=== PATIENT | female | born 1975 | race Caucasian/White ===

== ENCOUNTER 2016-08-12 21:34 | Emergency (ER) | payer OTHER ==
[~2016-08-12] VITALS: Ht 162.6 cm; Wt 55.3 kg
[~2016-08-12 21:34] MED LIST: MEDROL4 M2 PO; TRIAMCINOLONE A15 G2 TOP
[2016-08-12 21:36] VITALS: BP 124/77
--- NOTE | 2016-08-12 21:43 | ED ANIMAL BITE/WOUND CHECK ---
History of Present Illness General Chief Complaint: Animal/Insect Bite Stated Complaint: RABIES SERIES, CAME IN CONTACT WITH RABID CAT Source: patient, family, old records Exam Limitations: no limitations Vital Signs & Intake/Output Vital Signs & Intake/Output Vital Signs Date Time Temp Pulse Resp B/P B/P Pulse O2 O2 Flow FiO2 Mean Ox Delivery Rate 08/126 98.4 98 18 124/77 97 Room Air Allergies Coded Allergies: NO KNOWN ALLERGIES (10/03/12) Reconcile Medications Methylprednisolone. (Medrol) 4 MG TAB.DS.PK 1 DP PO AD RASH 6 on day 1 then reduce by one tablet daily until gone Triamcinolone Acetonide 15 GM CREAM..G. 1 RANDI TOP BID RASH apply to affected area(s) Triage Note: PT TO TRIAGE S/P +RABIES CAT EXPOSURE FOR A VACCINATION. VSS. NO COMPLAINTS. Triage Nurses Notes Reviewed? yes Onset: Abrupt Duration: day(s): (10), better Timing: remote history Injury Environment: work Is Injury an Animal Bite? 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 She is never received the rabies vaccine before. She states the hand which was scratch has been fine she denies any pain redness warmth streaking up the skin fever chills or any other complaints. Her last tetanus is unknown no modifying factors or associated symptoms otherwise. Past History Travel History Traveled to [place] past 21 day No Medical History Any Pertinent Medical History? see below for history Cardiovascular: hypertension, hyperlipidemia Surgical History Surgical History: non-contributory Psychosocial History What is your primary language Greenlandic Tobacco Use: Never used Family History Hx Contributory? No Review of Systems Review of Systems Constitutional: Reports: see HPI. All Other Systems: Reviewed and Negative Comments Review of systems: See HPI, All other systems negative. Constitutional, no chills no fever, no malaise HEENT: no sore throat no congestion, Cardiovascular: No chest pain , no palpitation Skin: no rashes, no change in skin Respiratory: No dyspnea no cough no sputum GI: No nausea no vomiting, no diarrhea Muscle skeletal: No joint pain, no joint swelling, no back pain, no neck pain, Neurologic: no headache Psych: No stress Heme/endocrine: No bruising Immunology: No lymphadenopathy Physical Exam Physical Exam General Appearance: well developed/nourished, no apparent distress, alert, awake Comments: Well-developed well-nourished patient in no apparent distress. HEENT: Atraumatic, extraocular motion intact Neck: Supple, FROM Back: FROM Cardiovascular: Regular rate and rhythms no murmurs Respiratory: No respiratory distress. Patient speaking in full complete sentences. Breath sounds clear to auscultation bilaterally: NO W/R/R Extremities: Superficial abrasion noted to the right dorsal hand no surrounding erythema and scabbed over no streaking up the skin no induration or fluctuance full range of motion Neuro: awake, alert, and oriented to person, place and time. There were no obvious focal neurologic abnormalities. Skin: Warm & dry;No appreciable rash on exposed skin Psych: Mood affect normal, normal memory normal judgment. Progress Differential Diagnosis: cellulitis, tenosysnovitis, cat scratch disease, rabies Plan of Care: Current Medications Sig/Lucas Start time Last Medication Dose Stop Time Status Admin Rabies Immune 1,100 UNITS ONCE ONE 08/12 2199 AC Globulin 08/12 2200 (Rabies Immune Globlulin Inj) Rabies Vaccine 1 SYR ONCE ONE 08/12 2199 AC (Rabies (Vaccine) 08/12 2200 Inj (1ML)) Tetanus/Diphtheria 0.5 ML ONCE ONE 08/12 2199 AC Toxoids Adsorbed 08/12 2200 (Decavac) I discussed with the patient at length scheduled for rabies prophylaxis. I had an extensive conversation regarding need for close follow up with their primary care physician this week as well as return precautions. I answered all of their questions, they feel comfortable with the plan and follow-up care. (ARIANE CAMPBELL) Departure Departure Time of Disposition: 2148 Disposition: HOME OR SELF CARE Condition: Stable Clinical Impression Primary Impression: Rabies, need for prophylactic vaccination against Referrals: NITIN HUMPHREYS,CADEN Ziegler (PCP/Family) Additional Instructions: As discussed return on August 15, August 19 and August 26 for your final rabies vaccinations. Return anytime sooner with any concerns or signs of infection Tylenol Motrin for pain if needed Departure Forms: Customer Survey General Discharge Information
== END 2016-08-12 22:39 ==
LOC: ERH 21:34
DX: Z20.3 Contact with and (suspected) exposure to rabies (principal)
CPT/HCPCS: 90376; 90471; 90714

== ENCOUNTER 2016-08-15 12:28 | Emergency (ER) | payer OTHER ==
--- NOTE | 2016-08-15 12:41 | ED GENERAL ADULT ---
History of Present Illness General Chief Complaint: General Adult Stated Complaint: VACCINE Source: patient, family, old records Exam Limitations: no limitations Vital Signs & Intake/Output Vital Signs & Intake/Output Vital Signs Date Time Temp Pulse Resp B/P B/P Pulse O2 O2 Flow FiO2 Mean Ox Delivery Rate 08/15 1244 97.2 95 18 125/77 98 Room Air Room Air Allergies Coded Allergies: NO KNOWN ALLERGIES (10/03/12) Reconcile Medications Methylprednisolone. (Medrol) 4 MG TAB.DS.PK 1 DP PO AD RASH 6 on day 1 then reduce by one tablet daily until gone Triamcinolone Acetonide 15 GM CREAM..G. 1 RANDI TOP BID RASH apply to affected area(s) Triage Nurses Notes Reviewed? yes Onset: Abrupt Duration: week(s): (1) Timing: recent history Injury Environment: home Severity: mild HPI: 41 year old female presents for 2nd rabies vaccine. She was exposed to a rescued cat at a jail that ended up dying and was tested positive for rabies. Patient reported muscle aches after administration of immunoglobulin which is now resolved but patient is anxious about vaccine. No chest pain, sob. No difficulty eating or swallowing. Past History Medical History Any Pertinent Medical History? see below for history Cardiovascular: hypertension, hyperlipidemia Tetanus Vaccine: 08/12/16 Surgical History Surgical History: non-contributory Psychosocial History What is your primary language Angolan Family History Hx Contributory? No Review of Systems Review of Systems Constitutional: Denies: chills, fever. EENTM: Reports: no symptoms. Respiratory: Denies: short of breath. Cardiovascular: Denies: chest pain. GI: Reports: no symptoms. Genitourinary: Reports: no symptoms. Musculoskeletal: Reports: muscle pain. Skin: Reports: no symptoms. Neurological/Psychological: Reports: anxiety. Hematologic/Endocrine: Denies: bruising, bleeding. Immunologic/Allergic: Denies: splenectomy. All Other Systems: Reviewed and Negative Physical Exam Physical Exam General Appearance: alert, awake, anxious, mild distress, thin Head: atraumatic Ears, Nose, Throat: normal pharynx, hearing grossly normal Respiratory: normal breath sounds, chest non-tender Extremities: normal range of motion, no edema Neurologic/Psych: no motor/sensory deficits, awake, alert, oriented x 3 Skin: intact, normal color, warm/dry Core Measures ACS in differential dx? No CVA/TIA Diagnosis: No Severe Sepsis Present: No Septic Shock Present: No Progress Differential Diagnoses I considered the following diagnoses in my evaluation of the patient: [RABIES PROPHYLAXIS] Plan of Care: RABIES VACCINE ADMINISTERED Initial ED EKG: none Departure Departure Time of Disposition: 1318 Disposition: HOME OR SELF CARE Condition: Stable Clinical Impression Primary Impression: Encounter for repeat administration of rabies vaccination Referrals: UNKNOWN Additional Instructions: FOLLOW UP WITH THE REMAINDER OF YOUR VACCINATIONS Departure Forms: Customer Survey General Discharge Information Critical Care Note Critical Care Note Critical Care Time: non-applicable
[2016-08-15 12:44] VITALS: BP 125/77
== END 2016-08-15 13:15 ==
LOC: ERH 12:28
DX: Z23 Encounter for immunization (principal)
CPT/HCPCS: 90471; 99281

== ENCOUNTER 2016-08-19 13:35 | Emergency (ER) | payer OTHER ==
[~2016-08-19] VITALS: Ht 162.6 cm; Wt 56.2 kg
[2016-08-19 13:40] VITALS: BP 118/77
[2016-08-19] MEDS ORDERED: LISINOPRIL-HCT1 EAC2 PO (13:48)
[2016-08-19] MEDS ORDERED: VYVANSE30 M1 PO (13:48)
[2016-08-19] MEDS ORDERED: OXCARBAZEPINE300 M1 PO (13:49)
--- NOTE | 2016-08-19 14:00 | ED GENERAL ADULT ---
History of Present Illness General Chief Complaint: General Adult Stated Complaint: RABIES VAC Source: patient Exam Limitations: no limitations Vital Signs & Intake/Output Vital Signs & Intake/Output Vital Signs Date Time Temp Pulse Resp B/P B/P Pulse O2 O2 Flow FiO2 Mean Ox Delivery Rate 08/19 1340 98.3 94 18 118/77 98 Room Air Room Air Allergies Coded Allergies: NO KNOWN ALLERGIES (10/03/12) Reconcile Medications Lisdexamfetamine Dimesylate (Vyvanse) 30 MG CAPSULE 1 CAP PO QAM DEPRESSION ( Reported) Lisinopril/Hydrochlorothiazide (Lisinopril-Hctz 10-12.5 MG Tab) 10 MG-12.5 MG TABLET 1 TAB PO DAILY HTN (Reported) Methylprednisolone. (Medrol) 4 MG TAB.DS.PK 1 DP PO AD RASH 6 on day 1 then reduce by one tablet daily until gone Oxcarbazepine 300 MG TABLET 1 TAB PO BID DEPRESSION (Reported) Triamcinolone Acetonide 15 GM CREAM..G. 1 RANDI TOP BID RASH apply to affected area(s) Triage Note: TRIAGE: 41 Y/O FEMALE PRESENTS FOR THIRD RABIES VACCINE. Triage Nurses Notes Reviewed? yes : No Patient currently breastfeeds: No HPI: 41-year-old female with a history of hypertension presenting for third rabies vaccine. Patient presented to the ED on August 12 after finding out a dog that she had been previously bitten by tested positive for rabies after was . She received first and second rabies vaccine on August 12 and . Past History Travel History Traveled to [place] past 21 day No Medical History Any Pertinent Medical History? see below for history Neurological: NONE EENT: NONE Cardiovascular: hypertension Respiratory: NONE Gastrointestinal: NONE Hepatic: NONE Renal: NONE Musculoskeletal: NONE Psychiatric: NONE Endocrine: NONE Blood Disorders: NONE Cancer(s): NONE Tetanus Vaccine: 08/12/16 Surgical History Surgical History: non-contributory Psychosocial History What is your primary language Ukrainian Tobacco Use: Never used ETOH Use: occasional use Illicit Drug Use: denies illicit drug use Family History Hx Contributory? No Review of Systems Review of Systems Constitutional: Reports: no symptoms. EENTM: Reports: no symptoms. Respiratory: Reports: no symptoms. Cardiovascular: Reports: no symptoms. GI: Reports: no symptoms. Genitourinary: Reports: no symptoms. Musculoskeletal: Reports: no symptoms. Skin: Reports: no symptoms. Neurological/Psychological: Reports: no symptoms. Physical Exam Physical Exam General Appearance: well developed/nourished, no apparent distress, awake, comfortable Head: atraumatic Respiratory: normal breath sounds, lungs clear Cardiovascular: regular rate/rhythm, normal peripheral pulses Neurologic/Psych: awake, alert, oriented x 3, normal mood/affect Skin: intact, normal color, warm/dry Core Measures ACS in differential dx? No CVA/TIA Diagnosis: No Severe Sepsis Present: No Septic Shock Present: No Progress Differential Diagnoses I considered the following diagnoses in my evaluation of the patient: [encounter for rabies vaccine] Plan of Care: Current Medications Sig/Lucas Start time Last Medication Dose Stop Time Status Admin Rabies Vaccine 1 SYR ONCE ONE 08/19 1400 AC 08/19 (Rabies (Vaccine) 08/19 1401 1356 Inj (1ML)) Patient given third rabies vaccine. Will follow up in 7 days for fourth and final rabies vaccine. (CHARISSA MCNAIR,KANNAN) Initial ED EKG: none Departure Departure Disposition: HOME OR SELF CARE Condition: Stable Clinical Impression Primary Impression: Encounter for repeat administration of rabies vaccination Referrals: NITIN HUMPHREYS,CADEN Ziegler (PCP/Family) Additional Instructions: Follow-up in 7 days for your fourth and final rabies vaccine. Return to the ED sooner for any new or worsening symptoms. Departure Forms: Customer Survey General Discharge Information Critical Care Note Critical Care Note Critical Care Time: non-applicable
== END 2016-08-19 14:10 ==
LOC: ERH 13:35
DX: Z23 Encounter for immunization (principal)
CPT/HCPCS: 90471; 99281

== ENCOUNTER 2017-08-14 11:00 | Emergency (ER) | payer OTHER ==
[~2017-08-14 11:00] MED LIST changes: +LISINOPRIL-HCT1 EAC2 PO; +OXCARBAZEPINE300 M1 PO; +VYVANSE30 M1 PO
--- NOTE | 2017-08-14 11:35 | ED GI/GU/ABDOMINAL COMPLAINT ---
History of Present Illness General Chief Complaint: Abdominal Pain/Flank Pain Stated Complaint: RT SIDE ABDOMINAL PAIN Source: patient Exam Limitations: no limitations Vital Signs & Intake/Output Vital Signs & Intake/Output Vital Signs Date Time Temp Pulse Resp B/P B/P Pulse O2 O2 Flow FiO2 Mean Ox Delivery Rate 08/14 1330 97.7 89 16 102/74 99 Room Air 08/14 1106 97.9 107 22 108/72 97 Room Air Allergies Coded Allergies: NO KNOWN ALLERGIES (10/03/12) Reconcile Medications Lidocaine HCl (Lidocaine HCl Viscous) 2 % SOLUTION 15 ML PO 4 TIMES/DAY GASTRITIS MIX WITH MAALOX(GI COCKTAIL) Lisdexamfetamine Dimesylate (Vyvanse) 30 MG CAPSULE 1 CAP PO QAM DEPRESSION ( Reported) Lisinopril/Hydrochlorothiazide (Lisinopril-Hctz 10-12.5 MG Tab) 10 MG-12.5 MG TABLET 1 TAB PO DAILY HTN (Reported) Omeprazole 40 MG CAPSULE.DR 1 CAP PO DAILY ACID REFLUX Oxcarbazepine 300 MG TABLET 1 TAB PO BID DEPRESSION (Reported) Triage Note: PER PT ABD PAIN X 2 MONTHS, CONSTANT POINTS TO MID ABD SL TO RT SIDE. PER PT LAST TIME A GI COCKTAIL HELPED LMP ENDED 4 DAYS Triage Nurses Notes Reviewed? yes ? n Is pt currently ? No Onset: Gradual Duration: months Timing: recent history Quality/Severity: moderate Location: epigastric, right upper quadrant Radiation: no radiation Activities at Onset: none HPI: 42-year-old female comes into the emergency room with complaints of severe epigastric/right upper quadrant pain. Patient reports that she's been feeling some discomfort issues since January 2017. She reports that the symptoms got much worse last night after she had a veggie burger and some vegetables. She has a history of cholecystectomy. History of exploratory laparotomy for endometriosis. Denies any other surgeries. She denies any loose stool. Denies any fever chills. She comes in for further evaluation. No vomiting but some associated nausea. (Ab Tripathi) Past History Travel History Traveled to [place] past 21 day No Medical History Any Pertinent Medical History? 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 No (Ab Tripathi) Review of Systems Review of Systems Constitutional: Reports: no symptoms. EENTM: Reports: no symptoms. Respiratory: Reports: no symptoms. Cardiovascular: Reports: no symptoms. GI: Reports: see HPI. Genitourinary: Reports: no symptoms. Musculoskeletal: Reports: no symptoms. Skin: Reports: no symptoms. Neurological/Psychological: Reports: no symptoms. Hematologic/Endocrine: Reports: no symptoms. Immunologic/Allergic: Reports: no symptoms. All Other Systems: Reviewed and Negative (Ab Tripathi) Physical Exam Physical Exam General Appearance: well developed/nourished, no apparent distress, alert, awake Head: atraumatic Eyes: Bilateral: normal appearance. Ears, Nose, Throat, Mouth: hearing grossly normal, moist mucous membrane Neck: normal inspection Respiratory: normal breath sounds, no respiratory distress Cardiovascular: regular rate/rhythm Gastrointestinal: soft, non-tender Back: normal inspection Extremities: normal range of motion Neurologic/Psych: awake, alert, oriented x 3, normal gait, normal mood/affect Skin: intact, normal color Core Measures ACS in differential dx? No Sepsis Present: No Sepsis Focused Exam Completed? No (Ab Tripathi) Progress Differential Diagnosis: AMI, appendicitis, bowel obstruction, gastritis, hepatitis, pancreatitis, PID/cervicitis, peptic ulcer, PUD/GERD, perforated viscous, SBO Plan of Care: Orders Procedure Date/time Status TROPONIN LEVEL 08/14 1148 Complete LIPASE 08/14 1148 Complete COMPREHENSIVE METABOLIC PANEL 08/14 1148 Complete CBC WITHOUT DIFFERENTIAL 08/14 1148 Complete AMYLASE 08/14 1148 Complete EKG 08/14 1148 Active Laboratory Tests 08/14/17 1204: Anion Gap 8, Estimated GFR > 60, BUN/Creatinine Ratio 25.0, Glucose 93, Calcium 8.9, Total Bilirubin 0.4, AST 21, ALT 32, Alkaline Phosphatase 43, Troponin I < 0.01, Total Protein 6.3, Albumin 3.6, Globulin 2.7, Albumin/Globulin Ratio 1.3, Amylase 64, Lipase 176, CBC w Diff NO MAN DIFF REQ, RBC 4.44, MCV 94.5, MCH 31.6 H, MCHC 33.5, RDW 13.1, MPV 7.9, Gran % 82.6 H, Lymphocytes % 8.5 L, Monocytes % 8.3, Eosinophils % 0.4, Basophils % 0.2, Absolute Granulocytes 6.1, Absolute Lymphocytes 0.6 L, Absolute Monocytes 0.6, Absolute Eosinophils 0, Absolute Basophils 0 Diagnostic Imaging: Viewed by Me: CT Scan. Discussed w/RAD: CT Scan. Radiology Impression: PATIENT: CLARE ROSALES PRESENT AGE: 42 PATIENT ACCOUNT NO: [id number] : 76 LOCATION: [facility] ORDERING PHYSICIAN: Ab NAIDU SERVICE DATE: 08/14/17 EXAM TYPE : CAT - CT ABD & PELVIS W IV CONTRAST EXAMINATION: CT ABDOMEN AND PELVIS WITH CONTRAST CLINICAL INFORMATION: Epigastric pain. History of cholecystectomy. COMPARISON: None TECHNIQUE: Multidetector volumetric imaging was performed of the abdomen and pelvis following IV administration of 95 mL of Optiray 320 intravenous contrast. Sagittal and coronal reformatted images were obtained on the technologist's workstation. DLP: 253 mGy-cm FINDINGS: LUNG BASES: The visualized lung bases are unremarkable. LIVER, GALLBLADDER, AND BILIARY TREE: The liver is normal in size, shape, and attenuation. No focal hepatic lesion or biliary ductal dilatation is present. The gallbladder is unremarkable with no evidence of radiopaque gallstones, gallbladder wall thickening, or obvious pericholecystic inflammatory changes. PANCREAS: Unremarkable. SPLEEN: Unremarkable. ADRENAL GLANDS: Unremarkable. KIDNEYS AND URETERS: The kidneys are normal in size, shape, and attenuation. No hydronephrosis, hydroureter, or calculi seen. No perinephric stranding. BLADDER: Unremarkable. GASTROINTESTINAL TRACT: There is moderate stool seen throughout the colon without any significant distention. The small bowel loops are normal. No free air or free fluid seen. There is no inflammatory process in the abdomen. ABDOMINAL WALL: No significant hernia is appreciated. LYMPH NODES: Normal. VASCULAR: Unremarkable. PELVIC VISCERA: The uterus is anteverted. There is no free fluid. There is a 2.3 x 1.8 cm hypodense left adnexal lesion likely cyst. OSSEOUS STRUCTURES: There are degenerative disc changes L5-S1 disc level. No lytic or sclerotic process seen. IMPRESSION: Moderate constipation. No acute process seen. Probable left ovarian cyst. DICTATED BY: Caesar Coppola MD DATE/TIME DICTATED:08/14/171422 SAND MOLDER:LOCO DATE/TIME TRANSCRIBED:08/14/171422 CONFIDENTIAL, DO NOT COPY WITHOUT APPROPRIATE AUTHORIZATION. <Electronically signed in Other Vendor System> SIGNED BY: Caesar Coppola MD 08/14/17 143 Initial ED EKG: normal sinus rhythm, rate (85) Comments: 08/14/2017 3:06:50 PM Patient clinically looks well. In no apparent distress. Patient started on omeprazole for possible peptic ulcer disease and referred to clinical sciences professor for upper endoscopy. Return if any other concerns worsening symptoms. Understands and agrees with plan of care. Negative CT scan and lab work. Patient understands and agrees with plan of care. (Amador NAIDU,Ab) Departure Departure Disposition: HOME OR SELF CARE Condition: Stable Clinical Impression Primary Impression: Abdominal pain Secondary Impressions: PUD (peptic ulcer disease) Referrals: Yanick HUMPHREYS,Warner Saunders MD,Alexandr Cannon (PCP/Family) Additional Instructions: Take omeprazole as prescribed. Follow-up with clinical sciences professor for upper endoscopy. Return if any concerns worsening symptoms. Please go over all results of today's visit with your primary care doctor. Contact your primary care doctor to let them know you were here in the emergency room. There may be nonspecific findings which may not be related to your visit today here in the emergency room but may require further evaluation and chronic monitoring by your primary care doctor. If you had a laceration today the chance of foreign body always remains. You should follow-up with your primary care doctor for recheck in 3-5 days for a wound check. If you had an x-ray done there is a chance that a fracture could have been missed on initial read and you should follow-up with your primary care doctor for repeat x-rays if symptoms persist. If your blood pressure was elevated here in the emergency room please have rechecked by [facility] primary care doctor within the next 48. If you were prescribed a narcotic here in the emergency room or any type of controlled substances you're not allowed to drive while taking this medication or operate any type of heavy machinery. Narcotics can make you feel lightheaded dizziness nausea and can cause constipation. You may need to coal picker a stool softener. Thank you for choosing [facility] emergency room. Please return to the emergency room immediately if you have any other concerns worsening of symptoms. Departure Forms: Customer Survey General Discharge Information Prescriptions: Current Visit Scripts Omeprazole 1 CAP PO DAILY #42 CAP Lidocaine HCl (Lidocaine HCl Viscous) 15 ML PO 4 TIMES/DAY #100 ML MIX WITH MAALOX(GI COCKTAIL) (Ab Tripathi) PA/REGISTERED VASCULAR TECHNOLOGIST (RVT) Co-Sign Statement Statement: ED Attending supervision documentation- I saw and evaluated the patient. I have also reviewed all the pertinent lab results and diagnostic results. I agree with the findings and the plan of care as documented in the PA's/REGISTERED VASCULAR TECHNOLOGIST (RVT)'s documentation. x I have reviewed the ED Record and agree with the PA's/REGISTERED VASCULAR TECHNOLOGIST (RVT)'s documentation. [] Additions or exceptions (if any) to the PAs/REGISTERED VASCULAR TECHNOLOGIST (RVT)'s note and plan are summarized below: [] (Chong HUMPHREYS,Reji)
[2017-08-14 12:13] LABS: ABSOLUTE BASOPHIL COUNT 0 /CUMM (0.0-0.2); ABSOLUTE EOSINOPHIL COUNT 0 /CUMM (0.0-0.7); ABSOLUTE GRANULOCYTE CT 6.1 /CUMM (1.4-6.5); ABSOLUTE LYMPH COUNT 0.6 /CUMM (1.2-3.4); ABSOLUTE MONOCYTE COUNT 0.6 /CUMM (0.10-0.60); BASOPHIL % 0.2 % (0.0-2.0); EOSINOPHIL % 0.4 % (0-5); GRANULOCYTE % 82.6 % (42.2-75.2); HEMATOCRIT 41.9 % (37-47); MEAN CORPUSCULAR HGB 31.6 PG (27.0-31.0); MEAN CORPUSCULAR HGB CONC 33.5 G/DL (33.0-37.0); MEAN CORPUSCULAR VOLUME 94.5 FL (81.0-99.0); MEAN PLATELET VOLUME 7.9 FL (7.4-10.4); PLATELET COUNT 230 /CUMM (130-400); RBC DISTRIBUTION WIDTH 13.1 % (11.5-14.5); RED BLOOD CELL CT 4.44 /CUMM (4.20-5.40); WHITE BLOOD CELL COUNT 7.4 /CUMM (4.8-10.8)
--- NOTE | 2017-08-14 14:34 | CT SCAN REPORT ---
EXAMINATION: CT ABDOMEN AND PELVIS WITH CONTRAST CLINICAL INFORMATION: Epigastric pain. History of cholecystectomy. COMPARISON: None TECHNIQUE: Multidetector volumetric imaging was performed of the abdomen and pelvis following IV administration of 95 mL of Optiray 320 intravenous contrast. Sagittal and coronal reformatted images were obtained on the technologist's workstation. DLP: 253 mGy-cm FINDINGS: LUNG BASES: The visualized lung bases are unremarkable. LIVER, GALLBLADDER, AND BILIARY TREE: The liver is normal in size, shape, and attenuation. No focal hepatic lesion or biliary ductal dilatation is present. The gallbladder is unremarkable with no evidence of radiopaque gallstones, gallbladder wall thickening, or obvious pericholecystic inflammatory changes. PANCREAS: Unremarkable. SPLEEN: Unremarkable. ADRENAL GLANDS: Unremarkable. KIDNEYS AND URETERS: The kidneys are normal in size, shape, and attenuation. No hydronephrosis, hydroureter, or calculi seen. No perinephric stranding. BLADDER: Unremarkable. GASTROINTESTINAL TRACT: There is moderate stool seen throughout the colon without any significant distention. The small bowel loops are normal. No free air or free fluid seen. There is no inflammatory process in the abdomen. ABDOMINAL WALL: No significant hernia is appreciated. LYMPH NODES: Normal. VASCULAR: Unremarkable. PELVIC VISCERA: The uterus is anteverted. There is no free fluid. There is a 2.3 x 1.8 cm hypodense left adnexal lesion likely cyst. OSSEOUS STRUCTURES: There are degenerative disc changes L5-S1 disc level. No lytic or sclerotic process seen. IMPRESSION: Moderate constipation. No acute process seen. Probable left ovarian cyst.
[2017-08-14] MEDS ORDERED: OMEPRAZOLE40 M1 PO (14:49)
[2017-08-14] MEDS ORDERED: LIDOCAINE HCL V15 ML PO (14:49)
[2017-08-14 15:17] VITALS: BP 104/74
== END 2017-08-14 15:17 ==
LOC: ERH 11:00
PROVIDERS: Physician Assistant Medical
DX: K27.9 Peptic ulcer, site unspecified, unspecified as acute or chronic, without hemorrhage or perforation (principal); R10.13 Epigastric pain
CPT/HCPCS: 74177; 93005; 93010; 96374